=== PATIENT | male | born 1985 | race Caucasian/White ===

== ENCOUNTER 2018-06-19 19:26 | Emergency (ER) | payer BC ==
[~2018-06-19] VITALS: Ht 188 cm; Wt 90.0 kg
[2018-06-19 19:43] VITALS: BP 159/83
== END 2018-06-19 21:59 | disposition home or self-care (01) ==
LOC: ER 19:27
DX: T63.441A Toxic effect of venom of bees, accidental (unintentional), initial encounter (principal); R60.9 Edema, unspecified; X58.XXXA Exposure to other specified factors, initial encounter; Y93.89 Activity, other specified; Y92.89 Other specified places as the place of occurrence of the external cause; Y99.8 Other external cause status
CPT/HCPCS: 99281